=== PATIENT | female | born 1965 ===

== ENCOUNTER → 2017-12-10 | Outpatient (REF) ==
[2017-12-10 18:25] LABS: IRON,SERUM 75 ug/dL (35-150)
[2017-12-10 18:35] LABS: TOTAL IRON BINDING CAPACITY 251 ug/dL (265-497)
[2017-12-10 19:03] LABS: FERRITIN 125 ng/mL (11-264)
== END ==
LOC: ZLAB.WCH 18:08
PROVIDERS: Internal Medicine
DX: Z01.89 Encounter for other specified special examinations (principal)

== ENCOUNTER → 2018-09-29 | Outpatient (REF) | LOC: ZLAB.WCH 16:27 | DX: Z01.89 Encounter for other specified special examinations (principal) ==